=== PATIENT | female | born 1990 | race Hispanic/Latino ===

== ENCOUNTER 2019-02-04 17:33 | Emergency (ER) | payer OTHER ==
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
[2019-02-04] MEDS ORDERED: Ketorolac Tromethamine 60 MG/2 ML VIAL ONE (19:10)
== END 2019-02-04 19:23 | disposition home or self-care (01) ==
LOC: ERS 17:33
DX: S16.1XXA Strain of muscle, fascia and tendon at neck level, initial encounter (principal); M25.512 Pain in left shoulder; V89.2XXA Person injured in unspecified motor-vehicle accident, traffic, initial encounter
CPT/HCPCS: J1885